=== PATIENT | female | born 1975 | race Caucasian/White ===

== ENCOUNTER → 2024-02-12 13:06 | Outpatient (REF) | payer OTHER, SELFPAY | LOC: WDC 13:06 | PROVIDERS: ATTENDING PHYSICIAN Obstetrics & Gynecology Gynecology; FAMILY PHYSICIAN Nurse Practitioner | DX: Z12.31 Encounter for screening mammogram for malignant neoplasm of breast (principal) | CPT/HCPCS: 77063; 77067 ==

== ENCOUNTER → 2025-03-05 14:02 | Outpatient (REF) | payer OTHER, SELFPAY | LOC: WDC 14:02 | PROVIDERS: ATTENDING PHYSICIAN Obstetrics & Gynecology Gynecology; FAMILY PHYSICIAN Nurse Practitioner | DX: Z12.31 Encounter for screening mammogram for malignant neoplasm of breast (principal) | CPT/HCPCS: 77063; 77067 ==